=== PATIENT | male | born 1985 | race Caucasian/White ===

== ENCOUNTER 2019-06-30 10:36 | Emergency (ER) | payer OTHER ==
[~2019-06-30] VITALS: Ht 177.8 cm; Wt 84.1 kg
[2019-06-30 10:49] VITALS: BP 179/111
[2019-06-30] MEDS ORDERED: HYDROcodone/APAP 5/325 TABLET ONE ×2 (11:14→11:59)
[2019-06-30] MEDS ORDERED: HYDROcodone/APAP 5/325 TABLET PO ONE (11:30)
== END 2019-06-30 12:41 | disposition home or self-care (01) ==
LOC: ED 12:00
DX: G89.11 Acute pain due to trauma (principal); M79.622 Pain in left upper arm; M25.562 Pain in left knee; W00.0XXA Fall on same level due to ice and snow, initial encounter; Y93.29 Activity, other involving ice and snow; Y92.89 Other specified places as the place of occurrence of the external cause; Y99.8 Other external cause status
CPT/HCPCS: 29125; 29505; 99283